=== PATIENT | female | born 1985 | race African-American/Black ===

== ENCOUNTER 2018-07-23 10:30 | Emergency (ER) | payer OTHER ==
[2018-07-23 11:00] VITALS: BP 134/81; PULSE 127; TEMP 101; BMI 29.6
== END 2018-07-23 13:34 | disposition left against medical advice (07) ==
LOC: JER 10:30
DX: Z53.21 Procedure and treatment not carried out due to patient leaving prior to being seen by health care provider (principal)
CPT/HCPCS: 99281-25

== ENCOUNTER 2019-06-27 06:10 | Inpatient (IN) | payer OTHER ==
[2019-06-27] MEDS ORDERED: AMPICILLIN - 2 GM in SODIUM CHLORIDE 100 ML IVPB ONE (06:59)
[2019-06-27] MEDS ORDERED: MAGNESIUM SULFATE 20GM/500ML - 20 GM/500 ML INFUS.BAG IVPB SCH (07:00)
[2019-06-27] MEDS: ELECTROLYTE-148 SOLN 1,000 ML IV SCH ×2 (07:00→20:00)
--- NOTE | 2019-06-27 07:07 | HP ---
Past Medical History - Admission History of Present Illness: 33 yo @ 33 1/7 wks by first trimester ultrasound, EDC 08/14/2019 complicated by: 1. Prior CD x 2 First CD for Breech in 2013 Second scheduled repeat CD in 2015 2. Hx/o fibroid uterus 3. Prior hx/o GDM Early GCT 134 Elevated 1 H GCT (178) this ; normal GTT Patient presents with chief complaint of leakage of clear fluids at 0520 this AM. She reports movement, denies vaginal bleeding or contractions. History Source: Patient Limitations to Obtaining History: No Limitations - Past Medical History Cardiovascular: No: HTN Pulmonary: No: Asthma ...: 3 ...Para: 2 Heme/Onc: No: Anemia - Past Surgical History Past Surgical History: Yes: Hx Myomectomy: No Hx Transabdominal Cerclage: No - Smoking History Smoking history: Never smoked Have you smoked in the past 12 months: No - Alcohol/Substance Use Hx Alcohol Use: No History of Substance Use: reports: None - Social History ADL: Independent History of Recent Travel: No Home Medications - Allergies Allergies/Adverse Reactions: Allergies Allergy/AdvReac Type Severity Reaction Status Date / Time No Known Allergies Allergy Verified 06/27/19 06:52 - Home Medications Home Medications: Ambulatory Orders Vitamins (Sjr) - 1 tab PO DAILY 06/27/19 Family Medical History Family History: Denies Review of Systems - Review of Systems Constitutional: reports: No Symptoms Cardiovascular: reports: No Symptoms Respiratory: reports: No Symptoms Gastrointestinal: reports: No Symptoms Genitourinary: reports: No Symptoms Musculoskeletal: reports: No Symptoms Integumentary: reports: No Symptoms Neurological: reports: No Symptoms Endocrine: reports: No Symptoms Hematology/Lymphatic: reports: No Symptoms Physical Exam - Maternity Constitutional: Yes: Well Nourished, No Distress, Calm Cardiovascular: Yes: Regular Rate and Rhythm Lungs: Clear to auscultation - Abdominal Exam/OB Number of Fetuses: Single Contractions: Yes Regularity: Irregular Monitor Mode: External Heart Rate (range): 130 Category: I Accelerations: Non-Uniform Decelerations: None - Vaginal Exam/OB Vaginal Bleediing: No Speculum Exam: Yes (+ grossly ruptured, visually closed) Amniotic Membrane Status: Intact Nitrazine Test: Positive Amniotic Fluid: Yes: Clear - Physical Exam Edema: No ...Motor Strength: WNL Psychiatric: Yes: Alert, Oriented - Labs Lab Results: PNL: O positive, antibody negative, RPR NR; HIV neg x 2; HBs Ag neg, HCV neg; Varicella Immune; Rubella Immune; Sequential Screen WNL; Early GCT WNL, GCT elevated --> GTT WNL; GBS unknown Hemorrhage Risk Assessment - Risk Factors Medium Risk Factors: Yes: None High Risk Factors: Yes: None Risk Score: 1 Risk Level: Medium Risk Assessment/Plan 33 yo @ 33 1/7 wks premature rupture of membranes 1. Admit to L&D 2. Consents reviewed and signed. Reviewed risks of delivery including but not limited to risk of lung maturity, difficulty with regulation of glucose, temperature, breathing, extended hospital stay. Reviewed risk of delivery including but not limited to infection, bleeding, damage to surrounding organs such as bowel, bladder and injury to infant. 3. Routine labs collected and sent Will send GBS culture 4. Will start antibioitcs (ampicillin / azithromycin) for latency 5. Plan for Magnesium for neuroprotection 6. Will consult MFM/Dr. Bedoya/ultrasound for EFW and position 7. Will notify Neonatology for consult 8. Will continue close monitoring
[2019-06-27] MEDS ORDERED: AMPICILLIN SODIUM 2 GM VIAL ONE (07:14)
[2019-06-27] MEDS ORDERED: AZITHROMYCIN IVPB 250 MG in DEXTROSE 5%-WATER - 250 ML IVPB SCH (07:15)
[2019-06-27] MEDS ORDERED: ACETAMINOPHEN 325 MG TABLET (FP) PO ONE ×2 (07:39→21:30)
[2019-06-27] MEDS ORDERED: BETAMET ACET/BETAMET NA PH 30 MG/5 ML VIAL IM ONE (07:39)
[2019-06-27] MEDS ORDERED: AZITHROMYCIN 500 MG TABLET PO ONE (08:00)
[2019-06-27 08:38] LABS: BASO % 0.4 % (0-2.0); EOS % 1.4 % (0-4.5); HEMATOCRIT 31.7 % (32.4-45.2); HEMOGLOBIN 10.6 GM/dL (10.7-15.3); LYMPH % 17.1 % (8-40); MCHC 33.6 g/dl (32.0-36.0); MEAN CELL VOLUME 89.3 fl (80-96); MEAN PLT VOLUME 9.8 fl (7.5-11.1); NEUT % 76.1 % (42.8-82.8); PLATELET COUNT 139 K/MM3 (134-434); RBC 3.55 M/mm3 (3.60-5.2); RDW 14.1 % (11.6-15.6)
[2019-06-27] MEDS: MAGNESIUM 4GM/H20 - 4 GM/100 ML IVPB IVPB SCH (09:00)
[2019-06-27 09:08] LABS: BLOOD UREA NITROGEN 9.1 mg/dL (7-18); CALCIUM 8.6 mg/dL (8.5-10.1); CREATININE 0.5 mg/dL (0.55-1.3)
[2019-06-27 09:12] VITALS: BMI 30.2
[2019-06-27 09:25] LABS: EPI CELLS 17.9 /HPF (0-5/HPF); HYALINE CASTS 195 /lpf (0-8); PH,URINE 7.5 (5.0-8.0); URINE APPEARANCE CLOUDY; URINE BACTERIA 109.9 /hpf (NEGATIVE); URINE BILIRUBIN NEGATIVE (NEGATIVE); URINE COLOR YELLOW; URINE GLUCOSE (UA) NEGATIVE (NEGATIVE); URINE KETONE NEGATIVE (NEGATIVE); URINE LEUK ESTERASE NEGATIVE (NEGATIVE); URINE NITRITE NEGATIVE (NEGATIVE); URINE PROTEIN 2+ (NEGATIVE); URINE RBC 63 /hpf (0-4); URINE UROBILINOGEN 0.2 mg/dL (0.2-1.0); URINE WBC 2 /hpf (0-5)
[2019-06-27 09:32] LABS: INR 0.98 (0.83-1.09); PROTHROMBIN TIME (PATIENT) 11.6 SEC (9.7-13.0)
[2019-06-27 09:35] LABS: ACTIVATED PTT 28.3 SECONDS (25.2-36.5)
[2019-06-27] MEDS ORDERED: AMPICILLIN - 1 GM in SODIUM CHLORIDE 100 ML IVPB SCH (11:03)
[2019-06-27] MEDS ORDERED: AMPICILLIN SODIUM 1 GM VIAL ONE ×4 (11:26→23:43)
[2019-06-27] MEDS: AMPICILLIN - 1 GM in SODIUM CHLORIDE 100 ML IVPB SCH ×3 (11:30→23:30)
[2019-06-27] MEDS ORDERED: ACETAMINOPHEN 325 MG TABLET (FP) ONE (21:32)
--- NOTE | 2019-06-27 21:58 | PN ---
Progress Note (short form) - Note Progress Note: had 2 variable decel.with good recovery after put on her lt side and O2 given . fhr recovered to cat1 plan observation, keep on Lt side, 02
--- NOTE | 2019-06-28 00:10 | PN ---
Progress Note (short form) - Note Progress Note: c/o of contraction, cx closed , vx -3 , fhr cat 1 with contraction q 3 min , will increase Mg to 2 gm, wants pain meds , will revaluate
[2019-06-28] MEDS ORDERED: BUTORPHANOL TARTRATE 1 MG/ML VIAL ONE (00:17)
[2019-06-28] MEDS ORDERED: PROMETHAZINE HCL 25 MG/1 ML VIAL ONE (00:17)
[2019-06-28] MEDS ORDERED: BUTORPHANOL TARTRATE 1 MG/ML VIAL IVPB ONE (00:20)
[2019-06-28] MEDS ORDERED: BETAMET ACET/BETAMET NA PH 30 MG/5 ML VIAL IM ONE (00:20)
[2019-06-28] MEDS ORDERED: PROMETHAZINE HCL 25 MG/1 ML VIAL IVPB ONE (00:20)
[2019-06-28] MEDS ORDERED: ONDANSETRON 4 MG/2 ML VIAL IVPUSH PRN (02:26)
[2019-06-28] MEDS ORDERED: morphine SULFATE/PF 0.5 MG/ML (2cc Syringe - QUVA) EP ONE (02:26)
[2019-06-28] MEDS ORDERED: WITCH HAZEL 50% (TUCKS) 40 PAD/JAR PAD TP PRN (02:40)
[2019-06-28] MEDS ORDERED: BENZOCAINE 28 GM HEMORRHOIDAL OINTMENT PR PRN (02:40)
[2019-06-28] MEDS ORDERED: BENZOCAINE 20% 57 GM BOTTLE TP PRN (02:40)
[2019-06-28] MEDS ORDERED: METHYLERGONOVINE MALEATE 0.2 MG/1 ML AMP IM PRN (02:40)
--- NOTE | 2019-06-28 02:40 | PN ---
Progress Note (short form) - Note Progress Note: has regular contraction with variable decel, uncomfortable , advised c/s, risks discussed
[2019-06-28] MEDS ORDERED: ceFAZolin SODIUM 1 GM VIAL ONE (02:45)
[2019-06-28] MEDS ORDERED: DEXTROSE 5%-LACTATED RINGERS 1,000 ML IV SCH (02:45)
[2019-06-28] MEDS ORDERED: OXYTOCIN 20 UNITS in 0.9% NS 20 UNIT/1,000 ML INFUS.BAG IV SCH (02:45)
[2019-06-28] MEDS ORDERED: OXYTOCIN 20 UNITS in 0.9% NS 20 UNIT/1,000 ML INFUS.BAG IV ONE (03:04)
[2019-06-28] MEDS ORDERED: ACETAMINOPHEN 325 MG TABLET (FP) PO PRN (03:39)
--- NOTE | 2019-06-28 03:44 | OP ---
Operative Note - Note: Operative Date: 06/28/19 Pre-Operative Diagnosis: 33 WEEKS, prom, PREVIOUS C/S, LABOR, FIBROID UTERUS Operation: REPEAT lst C/S, btl Findings: LIVE BABY GIRL, 9/, OP POSITION , MULTIPLE FIBROIDS Surgeon: Kenrick Alvarez Trailer Rental Clerk: Tyshawn Da Silva Anesthesiologist/POLYETHYLENE COMBINER: Florentin Justin Anesthesia: Spinal Specimens Removed: PLACENTA, PORTION OF rT , LT TUBE Estimated Blood Loss (mls): 500 Drains & Tubes with Location: LIMON Drains, Volume Out (mls): 300 Blood Volume Replaced (mls): 0 Fluid Volume Replaced (mls): 1,100 Operative Report Dictated: Yes
[2019-06-28] MEDS ORDERED: SODIUM CHLORIDE 0.9%/KCL 20 MEQ/1,000 ML INFUS.BAG IV SCH (03:45)
[2019-06-28] MEDS: IBUPROFEN 800 MG/8 ML IJ IVPB PRN ×2 (05:27→19:53)
[2019-06-28] MEDS: CEFAZOLIN 1 GM/D5W 1 GM/50 ML BAG IVPB SCH ×2 (09:44→17:11)
[2019-06-28] MEDS: ELECTROLYTE-148 SOLN 1,000 ML IV SCH (10:59)
[2019-06-28] MEDS: MAGNESIUM 4GM/H20 - 4 GM/100 ML IVPB IVPB SCH (10:59)
[2019-06-28] MEDS: AMPICILLIN - 1 GM in SODIUM CHLORIDE 100 ML IVPB SCH ×2 (13:13→13:14)
--- NOTE | 2019-06-28 15:44 | OP ---
DATE OF OPERATION: 06/28/2019 PREOPERATIVE DIAGNOSIS: 33 weeks, premature rupture of membranes, in labor, heart category 2, fibroid uterus, previous section, voluntary sterilization. POSTOPERATIVE DIAGNOSIS: 33 weeks, premature rupture of membranes, in labor, heart category 2, fibroid uterus, previous section, voluntary sterilization. PROCEDURE: Repeat low segment transverse section and bilateral tubal ligation. SURGEON: Kenrick Alvarez MD ANESTHESIA: Spinal. ANESTHESIOLOGIST: Florentin Justin MD ESTIMATED BLOOD LOSS: 500 mL. DESCRIPTION OF PROCEDURE: Patient was taken to the operating room under adequate spinal anesthesia. Abdomen and perineum were prepped and draped. Pfannenstiel abdominal skin incision was made over previous incision. Abdominal wall was cut layer by layer until peritoneum was exposed and incised. Upon entering the abdominal cavity, lower uterine segment was identified and uterovesical fold of peritoneum established. Bladder was pushed down. Then with the lower blade of the Monse retractor in the pelvis, a low transverse uterine incision was made. Incision extended laterally with bandage scissors. Amniotic sac was entered. Clear fluid. Head delivered. Nasopharynx was suctioned, and live baby girl was delivered without any difficulty. Apgars 9, 9. Placenta was delivered manually. Uterine had a large fibroid intramural at the fundal area. Both ovaries were normal. Then uterine incision was closed in 2 layers, 1st layer with 0 Biosyn continuous suture, the 2nd layer with 0 Biosyn imbricating the 1st layer. Bladder flap was closed with 0 Biosyn continuous suture. Both tubes and ovaries were checked and were normal. The right ovary was grasped with Dayanna clamp. Right tube was doubly tied with 2-0 plain. Portion of tube was removed, and endosalpinx was cauterized. The same procedure repeated for opposite tube. Pelvic cavity several times irrigated. No active bleeding was seen. All of the lap, sponge, and instrument counts were correct. Peritoneum was closed with 0 Biosyn continuous suture. Muscles were brought together with interrupted suture of 0 Biosyn. Fascia was closed with 0 Biosyn continuous suture, subcutaneous fat interrupted suture of 0 Biosyn, and the skin was closed with quinton. Patient tolerated the procedure well and left the OR in good condition. Chung [id number]
[2019-06-28] MEDS: diphenhydrAMINE HCL 25 MG CAPSULE (FP) PO PRN (21:31)
[2019-06-29] MEDS ORDERED: BISACODYL 10 MG SUPP.RECT PR PRN (02:41)
[2019-06-29] MEDS: oxyCODONE HCL 5 MG TABLET PO PRN ×4 (04:07→21:30)
[2019-06-29] MEDS: IBUPROFEN 600 MG TABLET (FP) PO PRN ×4 (06:17→21:31)
--- NOTE | 2019-06-29 07:38 | PN ---
Post Progress Note - Subjective Subjective: Patient without acute complaints. Reports tolerating oral intake without nausea or vomiting. Ambulating without dizziness. Denies fevers or chills. Pain well controlled with oral pain medication. Started pumping Passing flatus, voiding Post Day: 1 Type of Delivery: Repeat C/S Vital Signs: Vital Signs Temperature 98.4 F 06/29/19 01:31 Pulse Rate 76 06/29/19 01:31 Respiratory Rate 18 06/29/19 04:00 Blood Pressure 115/73 06/29/19 01:31 O2 Sat by Pulse Oximetry (%) 100 06/28/19 04:45 Breast Exam: Yes: Soft Uterus: Yes: Fundus Firm, Fundus below umbilicus Incision: Yes: Dressing dry and intact Abdomen/GI: Yes: Abdomen soft, Abdominal Distention, Passing flatus, Tolerating PO. No: Tender Lochia: Yes: Rubra Lochia, amount: Small Extremities: Yes: Calves non-tender, Edema (trace) Activity: Ambulating - Labs Labs: CBC WBC 5.0 K/mm3 (4.0-10.0) 06/27/19 07:30 RBC 3.55 M/mm3 (3.60-5.2) L 06/27/19 07:30 Hgb 10.6 GM/dL (10.7-15.3) L 06/27/19 07:30 Hct 31.7 % (32.4-45.2) L 06/27/19 07:30 MCV 89.3 fl (80-96) 06/27/19 07:30 MCH 30.0 pg (25.7-33.7) 06/27/19 07:30 MCHC 33.6 g/dl (32.0-36.0) 06/27/19 07:30 RDW 14.1 % (11.6-15.6) 06/27/19 07:30 Plt Count 139 K/MM3 (134-434) 06/27/19 07:30 MPV 9.8 fl (7.5-11.1) 06/27/19 07:30 Absolute Neuts (auto) 3.8 K/mm3 (1.5-8.0) 06/27/19 07:30 Neutrophils % 76.1 % (42.8-82.8) D 06/27/19 07:30 Lymphocytes % 17.1 % (8-40) D 06/27/19 07:30 Monocytes % 5.0 % (3.8-10.2) 06/27/19 07:30 Eosinophils % 1.4 % (0-4.5) 06/27/19 07:30 Basophils % 0.4 % (0-2.0) 06/27/19 07:30 Nucleated RBC % 0 % (0-0) 06/27/19 07:30 Assessment/Plan 33 yo POD # 1 s/p repeat CD + BTL 1. Continue routine postoperative care. 2. AM CBC without signs of anemia 3. Rh positive status, no rhogam indicated. 4. Encourage ambulation and incentive spirometer use 5. Continue oral pain medication 6. Reviewed /pumping Discussed importance of colostrum benefits in 's health Encouragement given 7. Anticipate discharge home postoperative day #3 or #4
[2019-06-29 08:16] LABS: BASO % 0.3 % (0-2.0); EOS % 0.1 % (0-4.5); HEMATOCRIT 33.3 % (32.4-45.2); HEMOGLOBIN 10.9 GM/dL (10.7-15.3); MCH 29.6 pg (25.7-33.7); MCHC 32.8 g/dl (32.0-36.0); MEAN PLT VOLUME 10.5 fl (7.5-11.1); MONO % 7.9 % (3.8-10.2); NEUT % 74.7 % (42.8-82.8); PLATELET COUNT 132 K/MM3 (134-434); RDW 14.8 % (11.6-15.6); WHITE BLOOD COUNT 9.5 K/mm3 (4.0-10.0)
[2019-06-29] MEDS: ENOXAPARIN NA (PORCINE) 40 MG/0.4 ML DISP.SYRIN SQ SCH (10:57)
[2019-06-29] MEDS: SIMETHICONE 80 MG TAB.CHEW (FP) PO PRN ×2 (12:03→17:45)
[2019-06-29] MEDS: diphenhydrAMINE HCL 25 MG CAPSULE (FP) PO PRN (14:23)
[2019-06-30] MEDS: SIMETHICONE 80 MG TAB.CHEW (FP) PO PRN ×2 (01:40→21:33)
[2019-06-30] MEDS: oxyCODONE HCL 5 MG TABLET PO PRN ×5 (01:40→21:33)
[2019-06-30] MEDS: IBUPROFEN 600 MG TABLET (FP) PO PRN ×4 (01:41→21:33)
--- NOTE | 2019-06-30 06:47 | PN ---
Post Progress Note - Subjective Subjective: Patient without acute complaints. Reports tolerating oral intake without nausea or vomiting. Ambulating without dizziness. Denies fevers or chills. Pain well controlled with oral pain medication. Expressing colostrum Passing flatus. Post Day: 2 Type of Delivery: Repeat C/S Vital Signs: Vital Signs Temperature 98.7 F 06/29/19 22:00 Pulse Rate 82 06/29/19 22:00 Respiratory Rate 16 06/29/19 22:00 Blood Pressure 121/75 06/29/19 22:00 O2 Sat by Pulse Oximetry (%) 100 06/28/19 04:45 Breast Exam: Yes: Soft Uterus: Yes: Fundus Firm, Fundus below umbilicus Incision: Yes: Squire intact. No: Redness, Oozing Abdomen/GI: Yes: Abdomen soft, Abdominal Distention (mild, soft), Tender (mild incisional), Passing flatus, Tolerating PO Lochia: Yes: Rubra Lochia, amount: Moderate Extremities: Yes: Calves non-tender, Edema (trace) Activity: Ambulating - Labs Labs: CBC WBC 9.5 K/mm3 (4.0-10.0) 06/29/19 07:20 RBC 3.70 M/mm3 (3.60-5.2) 06/29/19 07:20 Hgb 10.9 GM/dL (10.7-15.3) 06/29/19 07:20 Hct 33.3 % (32.4-45.2) 06/29/19 07:20 MCV 90.0 fl (80-96) 06/29/19 07:20 MCH 29.6 pg (25.7-33.7) 06/29/19 07:20 MCHC 32.8 g/dl (32.0-36.0) 06/29/19 07:20 RDW 14.8 % (11.6-15.6) 06/29/19 07:20 Plt Count 132 K/MM3 (134-434) L 06/29/19 07:20 MPV 10.5 fl (7.5-11.1) 06/29/19 07:20 Absolute Neuts (auto) 7.1 K/mm3 (1.5-8.0) 06/29/19 07:20 Neutrophils % 74.7 % (42.8-82.8) 06/29/19 07:20 Lymphocytes % 17.0 % (8-40) 06/29/19 07:20 Monocytes % 7.9 % (3.8-10.2) 06/29/19 07:20 Eosinophils % 0.1 % (0-4.5) D 06/29/19 07:20 Basophils % 0.3 % (0-2.0) 06/29/19 07:20 Nucleated RBC % 0 % (0-0) 06/29/19 07:20 Assessment/Plan 33 yo POD # 2 s/p repeat CD + BTL 1. Continue routine postoperative care. 2. Encourage ambulation and incentive spirometer use 3. Continue oral pain medication 4. Anticipate discharge home postoperative day #3
--- NOTE | 2019-06-30 06:54 | DS ---
Physical Exam-LINEN CLERK Vital Signs: Vital Signs Temperature 98.7 F 06/29/19 22:00 Pulse Rate 82 06/29/19 22:00 Respiratory Rate 16 06/29/19 22:00 Blood Pressure 121/75 06/29/19 22:00 O2 Sat by Pulse Oximetry (%) 100 06/28/19 04:45 Labs: CBC, BMP 06/29/19 07:20 06/27/19 07:30 Delivery - Delivery Type of Anesthesia: Spinal Episiotomy/Laceration: None EBL (cc): 500 Delivery, Single - Stages of Labor Date 1st Stage Initiatied: 06/27/19 Time 1st Stage Initiated: 23:30 Date of Delivery: 06/28/19 Time of Delivery: 02:56 Time Placenta Delivered: 02:57 - Condition of Damper Maker/Emergency Medical Technician/Driver Present: Yes Name: Linh Blackwood Gender: Female Weight: 3 lb 11 oz Position: Right, OP Total Hours ROM (Hrs/Mins): 21hrs 23min - 1 Minute Total Score: 9 5 Minutes Total Score: 9 - [place] Feeding Plan Initial Plan: Elected not to breastfeed exclusively throughout hospitalization Discharge Summary Problems reviewed: Yes Reason For Visit: PREMATURE RUPTURE MEMBRANE Current Active Problems delivery delivered (Acute) Premature delivery (Acute) premature rupture of membranes (PPROM) with onset of labor after 24 hours of rupture in first trimester, antepartum (Acute) Procedures: Principal: delivery Hospital Course: Patient was admitted PPROM at 33 weeks She was given betamethasone, ampicilin/azithromycin for latency and magnesium for tocolysis/neuroprotection She progressed into labor, was given second dose of betamethasone early (12 hours) and underwent a repeat delivery and bilateral tubal ligation POD # 1 patient was ambulating, voiding and passing gas; tolerating oral intake without nausea and vomiting She was given lovenox for DVT Prophylaxis Pain was well controlled with oral medication Patient was stable for discharge home POD # 3 Condition: Good - Instructions Diet, Activity, Other Instructions: Follow up this week for staple removal Physical activity Resume your normal everyday activity as tolerated no heavy lifting or exercise until seen by your surgeon. You may walk unlimited jacques of and climb stairs. You may resume driving the car when you feel safe and comfortable behind the wheel. No sexual activity as instructed. Wound care If you have a bandage, leave it on, and keep dry for 48-72 hours. After that time discard the outer bandage. If they are tapes on the skin under the out of bandage leave them in place. They will peel off in the next 7 to 10 days. Do Not Peel them off. You may shower the day after surgery. If there are tapes present on the skin, you may shower over them. Diet There are no dietary restrictions. Eat healthy, high-fiber foods. Drink 6 to 8 glasses of liquid each day. This will assist in keeping your bowels are regular. Pain management You may take Tylenol or acetaminophen or Ibuprofen (for example, Motrin, Advil etc.) for pain. Any prescription medication is ordered should be taken as prescribed for moderate to severe pain. Call MD for any of the following: Severe pain not relieved by medication Fever of 101 or higher Excessive bleeding or drainage on dressing Inability to urinate [place] ULTR[place]OUND SPE[place] Reference #: [id number] Referrals: Johnson Roberts MD [Staff Physician] - Disposition: HOME - Home Medications Comprehensive Discharge Medication List: Ambulatory Orders Tablet 1 tablet PO DAILY 06/27/19 Vitamins (Sjr) - 1 tab PO DAILY 06/27/19 Oxycodone HCl/Acetaminophen [Percocet 5-325 mg Tablet] 1 tab PO Q6H #10 tablet MDD 4 06/30/19 Prescription Drug Monitoring Program (I-STOP) results: I-STOP reviewed and no issues identified (Reference #: [id number])
[2019-06-30] MEDS: ENOXAPARIN NA (PORCINE) 40 MG/0.4 ML DISP.SYRIN SQ SCH (10:37)
[2019-06-30 21:56] VITALS: TEMP 98.3
[2019-06-30] MEDS ORDERED: SENNOSIDES/DOCUSATE COMBO (SENNA PLUS) TABLET (UD) PO PRN (22:00)
[2019-07-01] MEDS: SIMETHICONE 80 MG TAB.CHEW (FP) PO PRN (02:33)
[2019-07-01] MEDS: IBUPROFEN 600 MG TABLET (FP) PO PRN ×2 (02:33→07:41)
[2019-07-01] MEDS: oxyCODONE HCL 5 MG TABLET PO PRN (02:34)
[2019-07-01 08:12] LABS: BASO % 0.6 % (0-2.0); EOS % 2.9 % (0-4.5); HEMOGLOBIN 12.3 GM/dL (10.7-15.3); LYMPH % 33.7 % (8-40); MCH 29.9 pg (25.7-33.7); MCHC 33.2 g/dl (32.0-36.0); MEAN CELL VOLUME 89.8 fl (80-96); MEAN PLT VOLUME 10.3 fl (7.5-11.1); MONO % 7.7 % (3.8-10.2); NEUT % 55.1 % (42.8-82.8); PLATELET COUNT 172 K/MM3 (134-434); RBC 4.12 M/mm3 (3.60-5.2); RDW 15.1 % (11.6-15.6); WHITE BLOOD COUNT 6.2 K/mm3 (4.0-10.0)
[2019-07-01] MEDS: ENOXAPARIN NA (PORCINE) 40 MG/0.4 ML DISP.SYRIN SQ SCH (09:35)
[2019-07-01 10:08] VITALS: BP 113/79; PULSE 71
--- NOTE | 2019-07-02 17:34 | PATH ---
Surgical Pathology Report Patient Name: GIRISH AKINS [facility]. Rec. #: [id number] /Age/Gender: 1985 (Age: 33) / F Account: [id number] Location: [facility] OBS/CHILDREN'S LITERATURE PROFESSOR Taken: 06/28/2019 Received: 06/28/2019 Reported: 07/02/2019 Physicians: Kenrick Alvarez M.D. Specimen(s) Received A: PLACENTA B: PORTION OF LT C: PORTION OF RT Clinical History , 33.2 weeks' gestation, PProm, previous x2 in labor Final Diagnosis A. PLACENTA: THIRD TRIMESTER PLACENTA WITH FOCAL CALCIFICATION. TRIVASCULAR CORD. MEMBRANES WITH NO DIAGNOSTIC ABNORMALITIES. B. PORTION OF LEFT FALLOPIAN TUBE: COMPLETE CROSS SECTION OF THE FALLOPIAN TUBE IDENTIFIED. C. PORTION OF RIGHT FALLOPIAN TUBE: COMPLETE CROSS SECTION OF THE FALLOPIAN TUBE IDENTIFIED. Electronically Signed Montse De Santiago M.D. Gross Description A. The specimen is received fresh labeled placenta and is a 471 gram, 15.0 x 13.0 x 2.3 cm. placenta with attached membranes and umbilical cord. The attached membranes are duenas, translucent with focal opacities and insert marginally. The umbilical cord measures 19 cm. in length and averages zero point cm. in diameter. The cord inserts eccentrically, 1.5 cm. to the nearest margin. No true knots or strictures are identified. Cut surface of the umbilical cord reveals 3 vessels. The surface is rasheed blue with moderate fibrin deposition and appropriate caliber vessels. The maternal surface is red-brown with focal defects. Sectioning reveals red-brown, spongy parenchyma. No lesions are identified. Human Resources Manager Manufacturing sections are submitted in three cassettes as follows: 1- membrane rolls and umbilical cord; 2-3- full thickness sections of placenta. B. Received in formalin labeled "portion of left fallopian tube," is a 2 cm in length portion of fallopian tube. No fimbria are present. The outer surface is duenas-wallace and smooth. Sectioning reveals an unremarkable lumen. Human Resources Manager Manufacturing sections are submitted in one cassette. C. Received in formalin labeled "portion of right fallopian tube," is a 1.4 cm in length portion of fallopian tube. No fimbria are present. The outer surface is duenas-wallace and smooth. Sectioning reveals an unremarkable lumen. Human Resources Manager Manufacturing sections are submitted in one cassette. 07/01/2019 saudi07/01/2019
== END 2019-07-01 12:10 | disposition home or self-care (01) | DRG 785 ==
LOC: JLDR 06:10 → J3W 06-28 05:17
PROVIDERS: ADMIT Obstetrics & Gynecology; ATTEND Obstetrics & Gynecology
PROC: 10D00Z1 Extraction of Products of Conception, Low, Open Approach (ICD-10-PCS; principal; 2019-06-28)
PROC: 0UB70ZZ Excision of Bilateral Fallopian Tubes, Open Approach (ICD-10-PCS; 2019-06-28)
DX: O42.913 Preterm premature rupture of membranes, unspecified as to length of time between rupture and onset of labor, third trimester (principal); O34.219 Maternal care for unspecified type scar from previous cesarean delivery; O34.13 Maternal care for benign tumor of corpus uteri, third trimester; O76 Abnormality in fetal heart rate and rhythm complicating labor and delivery; D25.9 Leiomyoma of uterus, unspecified; Z3A.33 33 weeks gestation of pregnancy; Z37.0 Single live birth; Z30.2 Encounter for sterilization
CPT/HCPCS: 36415; 36600; 80048; 81003; 82803; 83735; 85025; 85610; 85730; 86593; 86850; 86900; 86901; 87081; 88302-TC; 88307-TC; 96372